=== PATIENT | female | born 1970 | race Caucasian/White ===

== ENCOUNTER 2022-04-13 04:41 | Emergency (ER) | payer BC, MEDICAID ==
[~2022-04-13] VITALS: Ht 170.2 cm; Wt 66.2 kg
[2022-04-13 04:44] VITALS: BP_SYST 144
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
--- NOTE | 2022-04-13 05:30 | NUR ---
ER at bedside examining patient.
--- NOTE | 2022-04-13 05:53 | NUR ---
# 20 gauge angiocath placed to R AC. Use of asceptic technique. Opsite placed over site. Blood return noted. Flushed with 10 cc of normal saline. No evidence of infiltration noted. Patient tolerated well.
[2022-04-13 06:24] LABS: ANION GAP 9 (5-15); CALCIUM 9.2 mg/dL (8.4-11.0); CHLORIDE 102 mmol/L (98-107); CREATININE 0.96 mg/dL (0.55-1.30); GLUCOSE 128 mg/dL (70-99); POTASSIUM 3.7 mmol/L (3.5-5.1); UREA NITROGEN, BLOOD 12 mg/dL (8-21)
[2022-04-13 06:25] LABS: GFR AFRICAN AMERICAN 79 mL/min (>90)
[2022-04-13 06:31] LABS: ALANINE AMINOTRANSFERASE 17 U/L (12-78); ALBUMIN 3.9 g/dL (3.4-4.8); ASPARTATE AMINOTRANSFERASE 16 U/L (10-37); TOTAL BILIRUBIN 0.5 mg/dL (0.0-1.0)
[2022-04-13 06:42] LABS: RED BLOOD CELL COUNT(AUTO) 4.74 MIL/uL (4.2-6.2); WHITE BLOOD COUNT (AUTO) 5.5 K/uL (4.8-10.8)
[2022-04-13 06:43] LABS: BASOPHILS % (AUTO) 3.7 % (0.0-2.0); EOSINOPHILS % (AUTO) 1.1 % (0.0-4.0); HEMATOCRIT 40.3 % (36-48); HEMOGLOBIN 13.6 g/dL (12.0-16.0); LYMPHOCYTES % (AUTO) 13.5 % (20.5-51.5); MEAN CORPUSCULAR HEMOGLOBIN 29 pg (27-31); MEAN CORPUSCULAR HGB CONC 34 % (32-36); MEAN CORPUSCULAR VOLUME 85 fL (79.0-98.0); NEUTROPHILS % (AUTO) 73.7 % (40.0-70.0); PLATELET COUNT (AUTO) 254 K/uL (130-430); RED CELL DISTRIBUTION WIDTH 16.8 % (9.0-15.0)
[2022-04-13 06:44] LABS: BASOPHILS # (AUTO) 0.2 K/uL (0.0-0.2); EOSINOPHILS # (AUTO) 0.1 K/uL (0.0-0.4); LYMPHOCYTES # (AUTO) 0.7 K/uL (1.0-5.5); MONOCYTES # (AUTO) 0.4 K/uL (0.0-1.0)
[2022-04-13] MEDS ORDERED: LORA-258 PO ×3 (07:04→07:27)
[2022-04-13] MEDS ORDERED: ALBMDI INH ×3 (07:04→07:27)
--- NOTE | 2022-04-13 07:25 | NUR ---
RECEIVED PT FROM NOC SHIFT RN. PT BIB FRIEND WITH C/O ANXIETY AND SOB. RESP E/U. ON R/A. NO S/S OF DISTRESS NOTED. DENIES PAIN. IV CATH TO RAC 20, WNL, CDI. SIDERAILS UP X2. FRIEND AT BEDSIDE.
[2022-04-13 07:34] VITALS: BP_SYST 125
--- NOTE | 2022-04-13 07:35 | NUR ---
Patient given written and verbal discharge instructions and verbalizes understanding. ER MD discussed with patient the results and treatment provided. Patient in stable condition. ID arm band removed. IV catheter removed intact and dressing applied, no active bleeding. Rx of ativan/albuterol given. Patient educated on pain management and to follow up with PMD. Pain Scale 0/10. Opportunity for questions provided and answered. Medication side effect fact sheet provided.
== END 2022-04-13 07:35 | disposition home or self-care (01) ==
LOC: SED 04:41
DX: R06.00 Dyspnea, unspecified (principal); R06.02 Shortness of breath; Z79.899 Other long term (current) drug therapy
CPT/HCPCS: 36415; 71045; 80053; 84484; 85025; 93005; 99285